=== PATIENT | female | born 1985 | race Caucasian/White ===

== ENCOUNTER 2024-07-28 10:55 | Emergency (ER) | payer SELFPAY ==
[2024-07-28 11:05] VITALS: BP 142/80; PULSE 74; RESP 20; TEMP 36.6; O2SAT 97; BMI 39.8
[2024-07-28] MEDS: DEXAMETHASONE 4MG/ML 1ML VIAL 4 MG IM (11:26)
--- NOTE | 2024-07-28 11:29 | ED_ITS ---
Discharge Plan Disposition Patient Disposition: Home, Self-Care Condition: Good Prescriptions Prescriptions: New prednisone 20 mg tablet 20 mg PO BID Qty: 10 0RF Referrals Follow up/Referrals: Provider,Referral, MD [Primary Care Provider] - See instructions Activity Restrictions/Add. Instructions Additional Instructions/Restrictions: start steroids tomorrow Benadryl as needed if no improvement or worsening return Clinical Impressions Clinical Impression: Allergy to poison ami Instructions Patient Instructions: DI for Poison Ami Allergy, Summertime Rashes: Poison Ami, [place], and [place] Print Language Print Language: Palestinian Discharge ED [facility] [facility] [place] HPI General Stated complaint: rash on body Mode of Arrival: Ambulatory Source of Information: Patient and Spouse Limitations: No Limitations Time Seen by Provider: 07/28/24 11:29 Description of Symptoms (Recalled from Triage Doc. by RN): PATIENT C/O POISON AMI RASH X 2 DAYS HEENT Symptoms (Recalled from RN notes): No Resp Symptoms (Recalled from RN notes): No Skin Symptoms (Recalled from RN notes): Yes MS Symptoms (Recalled from RN notes): No Functional Status (Recalled from RN notes): WNL History of Present Illness Provider Complaint: 38 yr old female presents for poison ami rash all over body since thurs and spreading Related Data Previous Rx's ?Medication ?Instructions ?Recorded prednisone 20 mg tablet 20 mg PO BID #10 tabs 07/28/24 Allergies Allergy/AdvReac Type Severity Reaction Status Date / Time No Known Allergies Allergy Verified 07/28/24 11:20 Worker's Comp Is this a Worker's Comp case?: No [facility] Disclaimer: The information contained in this section may have been updated after the patient was seen, as this information can be updated by other users. 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) Smoking Status: Never smoker alcohol intake: never current occupational status: other Travel in the last 8 weeks: None ROS Obtained: Yes All systems reviewed & no additional complaints except as documented Constitutional Constitutional: Reports system reviewed and no additional complaints, except as documented Eyes Eyes: Reports system reviewed and no additional complaints, except as documented ENT Ears, Nose, Mouth, and Throat: Reports system reviewed and no additional complaints, except as documented Cardiovascular Cardiovascular: Reports system reviewed and no additional complaints, except as documented Respiratory Respiratory: Reports system reviewed and no additional complaints, except as documented Gastrointestinal Gastrointestingal: Reports system reviewed and no additional complaints, except as documented Musculoskeletal Musculoskeletal: Reports system reviewed and no additional complaints, except as documented Integumentary/Breasts Skin/Breast: Reports system reviewed and no additional complaints, except as documented, Reports as per HPI, Reports pruritus and Reports rash Neurologic Neurologic: Reports system reviewed and no additional complaints, except as documented Endocrine Endocrine: Reports system reviewed and no additional complaints, except as documented Hematologic/Lymphatic Henatologic/Lymphatic: Reports system reviewed and no additional complaints, except as documented Allergic/Immunologic Allergic/Immunologic: Reports system reviewed and no additional complaints, except as documented and Reports as per HPI Physical Exam General General appearance: alert and in no apparent distress Eye Eye exam: Present normal appearance and PERRL ENT ENT exam: Present normal exam Respiratory Respiratory exam: Present normal lung sounds bilaterally Cardiovascular Cardiovascular exam: Present regular rate and normal rhythm Neurological Exam Neurological exam: Present alert and oriented X3 Skin Skin exam: Present warm and rash (scattered rash to franco arms,legs,neck, chest) Medical Decision Making Medical Records Medical records reviewed: Yes I reviewed the patient's medical records. Apolinar Inquiry Pt receiving controlled substance: No Apolinar was queried for this patient: No Vital Signs: 07/28/24 11:05 Temperature 97.9 F Temperature Source Oral Pulse Rate [Left Brachial] 74 Respiratory Rate 20 Blood Pressure [Left Arm] 142/80 H Blood Pressure Mean [Left Arm] 100 Blood Pressure Source [Left Arm] Automatic Cuff Blood Pressure Position [Left Arm] Sitting 02 Sat by Pulse Oximetry 97 Oxygen Delivery Method Room Air Orders (Tests/Meds): ED MEDICATIONS Generic Name Dose Route Start Last Admin Trade Name Freq PRN Reason Stop Dose Admin Dexamethasone Sodium Phosphate 4 mg 07/28/24 11:21 07/28/24 11:26 Dexamethasone 4mg/Ml 1ml Vial IM 07/28/24 11:22 4 mg ONCE ONE Administration
[2024-07-28 11:37] VITALS: BP 142/80; PULSE 74; RESP 20; TEMP 36.6; O2SAT 97
== END 2024-07-28 11:42 | disposition home or self-care (01) ==
PROVIDERS: Emergency Provider Nurse Practitioner Family
DX: L23.7 Allergic contact dermatitis due to plants, except food (principal); W60.XXXA Contact with nonvenomous plant thorns and spines and sharp leaves, initial encounter
CPT/HCPCS: 96372; 99204; 99212; G0463; J1100